=== PATIENT | male | born 1960 | race Caucasian/White ===

== ENCOUNTER 2016-11-23 21:22 | Emergency (ER) | payer BC, OTHER ==
[~2016-11-23] VITALS: Ht 170.2 cm; Wt 68.0 kg
[2016-11-23 21:34] VITALS: BP 114/64; PULSE 87; RESP 20; TEMP 98; O2SAT 98
== END 2016-11-24 01:33 | disposition left against medical advice (07) ==
LOC: PHED 21:22
DX: M79.673 Pain in unspecified foot (principal)
CPT/HCPCS: 99281